=== PATIENT | female | born 1940 | race Caucasian/White ===

== ENCOUNTER → 2017-05-18 | Outpatient (CLI) | payer MEDICARE ==
[~2017-05-18] MED LIST: ALBUTEROL; AMOXICILLIN 50500 M1; APAP650; ASPIR 8181 MG PO; ATENOLOL 25 MG25 M1 PO; CRESTOR PO; OMEPRAZOLE20 M2; RISPERDAL0.25 MG PO; SIMVASTATIN20 MG
== END ==
LOC: M.RAD 13:10
DX: Z12.31 Encounter for screening mammogram for malignant neoplasm of breast (principal)